=== PATIENT | male | born 1980 | race Caucasian/White ===

== ENCOUNTER 2016-10-14 21:05 | Emergency (ER) | payer OTHER ==
[~2016-10-14] VITALS: Ht 188 cm; Wt 81.6 kg
--- NOTE | 2016-10-14 21:10 | NUR ---
PT AMBULATORY TO ER BED 11. PRESENTS W/ BLE CELLULITIS. 03/11 PAIN. DENIES IV DRUG USE. GOWNED AND PLACED ON MONNITOR. VAHID FIGUEROA.
--- NOTE | 2016-10-14 21:27 | NUR ---
IV LINE STARTED BLOOD DRAWN AND SENT TO LAB.
--- NOTE | 2016-10-14 21:33 | NUR ---
RADIOLOGY AT BEDSIDE FOR CHEST XRAY.
[2016-10-14 21:34] LABS: BASOPHILS % (AUTO) 0.5 % (0.0-2.0); EOSINOPHILS % (AUTO) 0.2 % (0.0-6.0); HEMATOCRIT 44 % (39-51); HEMOGLOBIN 14.4 g/dL (13.5-17.5); LYMPHOCYTES # (AUTO) 1.9 /CMM (0.8-4.8); LYMPHOCYTES % (AUTO) 38.5 % (20.0-44.0); MEAN CORPUSCULAR HEMOGLOBIN 28 PG (26.0-33.0); MEAN CORPUSCULAR HGB CONC 33 g/dl (31.0-36.0); MEAN CORPUSCULAR VOLUME 84 fL (80-96); MONOCYTES # (AUTO) 0.3 /CMM (0.1-1.30); MONOCYTES % (AUTO) 6.1 % (2.0-12.0); NEUTROPHILS # (AUTO) 2.8 /CMM (1.8-8.9); NEUTROPHILS % (AUTO) 54.7 % (43.0-81.0); PLATELET COUNT (AUTO) 150 /CMM (150-450); RDW COEFFICIENT OF VARIATION 12.2 (11.5-15.0); RED BLOOD CELL COUNT(AUTO) 5.25 MIL/uL (4.5-6.0)
[2016-10-14 21:45] LABS: CALCIUM, SERUM 9.1 mg/dL (8.5-10.1); CARBON DIOXIDE 30 mmol/L (21-32); CHLORIDE 102 mmol/L (98-107); CREATININE 0.9 mg/dL (0.6-1.3); GFR 96 mL/min (>60); GLUCOSE 84 mg/dL (74-106); POTASSIUM 3.7 mmol/L (3.5-5.1); SODIUM SERUM 140 mmol/L (136-145); UREA NITROGEN, BLOOD 19 mg/dL (7-18)
[2016-10-14 21:50] LABS: ALANINE AMINOTRANSFERASE 15 U/L (12-78); ALBUMIN 4.5 g/dL (3.4-5.0); ALKALINE PHOSPHATASE 89 U/L (46-116); ASPARTATE AMINOTRANSFERASE 13 U/L (15-37); BILIRUBIN,DIRECT 0.1 mg/dL (0.0-0.2); BILIRUBIN,TOTAL 0.5 mg/dL (0.2-1.0); TOTAL PROTEIN, SERUM 8.4 g/dL (6.4-8.2)
[2016-10-14 21:52] LABS: TROPONIN I < 0.017 ng/mL (0.00-0.056)
[2016-10-14 21:53] LABS: INR 0.95 (0.87-1.13); PROTHROMBIN TIME 9.9 SECS (9.5-12.7)
[2016-10-14] MEDS ORDERED: PIPERACILLIN /TAZOBACTAM 3.375 G VIAL IV ONE (21:57)
[2016-10-14] MEDS ORDERED: IV D5W 250 ML IV ONE (21:57)
[2016-10-14] MEDS ORDERED: VANCOMYCIN 1 GM VIAL ONE (21:57)
[2016-10-14] MEDS ORDERED: IV SET PRIMARY PUMP SET 1 EA INFUS.SET MC ONE (21:58)
[2016-10-14] MEDS ORDERED: VANCOMYCIN 1 GM in IV D5W 250 ML IV ONE (22:00)
[2016-10-14] MEDS ORDERED: PIPERACILLIN /TAZOBACTAM 3.375 G in IV D5W 50 ML IV ONE (22:00)
[2016-10-14 22:20] LABS: LACTIC ACID 1.1 mmol/L (0.4-2.0)
--- NOTE | 2016-10-14 23:51 | NUR ---
Patient does not wish to proceed with medical care recommended by Dr. Horton. Patient given information related to possible complications, up to and including , which could occur as a result of leaving the hospital at this time. Patient verbalizes understanding of risks involved due to leaving against medical advice. Patient has signed AMA form.IV removed. Catheter intact and site benign. Pressure and 4x4 applied to site. No bleeding noted.Patient discharged to home in stable condition. Written and verbal after care instructions given. Patient verbalizes understanding of instruction.
[2016-10-15 00:03] VITALS: BP 128/77
== END 2016-10-15 00:03 | disposition left against medical advice (07) ==
LOC: ER 21:07
DX: L03.116 Cellulitis of left lower limb (principal); L03.115 Cellulitis of right lower limb
CPT/HCPCS: 36415; 71010; 80048; 80076; 83605; 84484; 85025; 85730; 87040 ×2; 93005; 96365; 96375; 99285; A4606; J2543; J3370; J7060; Z7610

== ENCOUNTER 2017-05-14 08:10 | Emergency (ER) | payer OTHER ==
[~2017-05-14] VITALS: Ht 182.9 cm; Wt 81.6 kg
--- NOTE | 2017-05-14 08:15 | NUR ---
AAOX3, [id number] FROM A BUS STOP FOR LT LOWER LEG CELLULITIS ON/OFF 6 MONTHS. RR IS EVEN AND UNLABORED WITH NAD NOTED. SKIN IS WARM AND DRY. ASSISTED TO HOSPITAL GOWN. DR ANDERSON AT BS FOR EVAL.
[2017-05-14 08:38] LABS: BASOPHILS % (AUTO) 0.5 % (0.0-2.0); HEMATOCRIT 39 % (39-51); HEMOGLOBIN 12.7 g/dL (13.5-17.5); LYMPHOCYTES # (AUTO) 1.3 /CMM (0.8-4.8); LYMPHOCYTES % (AUTO) 21.7 % (20.0-44.0); MEAN CORPUSCULAR HEMOGLOBIN 28 PG (26.0-33.0); MEAN CORPUSCULAR HGB CONC 33 g/dl (31.0-36.0); MEAN CORPUSCULAR VOLUME 87 fL (80-96); MONOCYTES # (AUTO) 0.3 /CMM (0.1-1.30); MONOCYTES % (AUTO) 5.1 % (2.0-12.0); NEUTROPHILS # (AUTO) 4.5 /CMM (1.8-8.9); NEUTROPHILS % (AUTO) 72.7 % (43.0-81.0); PLATELET COUNT (AUTO) 279 /CMM (150-450); RDW COEFFICIENT OF VARIATION 13.3 (11.5-15.0); RED BLOOD CELL COUNT(AUTO) 4.47 MIL/uL (4.5-6.0); WHITE BLOOD COUNT (AUTO) 6.1 K/uL (4.3-11.0)
[2017-05-14 08:49] LABS: CALCIUM, SERUM 9.4 mg/dL (8.5-10.1); CARBON DIOXIDE 33 mmol/L (21-32); CHLORIDE 100 mmol/L (98-107); CREATININE 0.9 mg/dL (0.6-1.3); GLUCOSE 119 mg/dL (74-106); POTASSIUM 3.4 mmol/L (3.5-5.1); SODIUM SERUM 140 mmol/L (136-145); UREA NITROGEN, BLOOD 16 mg/dL (7-18)
[2017-05-14 08:55] LABS: ALANINE AMINOTRANSFERASE 20 U/L (12-78); ALBUMIN 3.1 g/dL (3.4-5.0); ALKALINE PHOSPHATASE 84 U/L (46-116); ASPARTATE AMINOTRANSFERASE 15 U/L (15-37); BILIRUBIN,DIRECT 0.1 mg/dL (0.0-0.2); BILIRUBIN,TOTAL 0.4 mg/dL (0.2-1.0); TOTAL PROTEIN, SERUM 9.2 g/dL (6.4-8.2)
[2017-05-14 08:57] LABS: INR 0.99 (0.87-1.13); PROTHROMBIN TIME 10.3 SECS (9.5-12.7)
--- NOTE | 2017-05-14 08:58 | NUR ---
RANGE MANAGEMENT SPECIALIST AT BEDSIDE
[2017-05-14 08:59] LABS: TROPONIN I < 0.017 ng/mL (0.00-0.056)
--- NOTE | 2017-05-14 09:59 | NUR ---
Patient discharged to home in stable condition. Written and verbal after care instructions given. Patient verbalizes understanding of instruction.
--- NOTE | 2017-05-14 09:59 | NUR ---
IV removed. Catheter intact and site benign. Pressure and 4x4 applied to site. No bleeding noted.
[2017-05-14 10:01] VITALS: BP 128/85
== END 2017-05-14 10:03 | disposition home or self-care (01) ==
LOC: ER 08:13
DX: I83.018 Varicose veins of right lower extremity with ulcer other part of lower leg (principal); I83.028 Varicose veins of left lower extremity with ulcer other part of lower leg; L97.819 Non-pressure chronic ulcer of other part of right lower leg with unspecified severity; F90.9 Attention-deficit hyperactivity disorder, unspecified type; F20.9 Schizophrenia, unspecified; F31.9 Bipolar disorder, unspecified; F10.10 Alcohol abuse, uncomplicated; Z59.0 Homelessness; Z88.8 Allergy status to other drugs, medicaments and biological substances
CPT/HCPCS: 36415; 71010-TC; 80048-TC; 80076-TC; 83605-TC; 84484-TC; 85025-TC; 85730-TC; 87040-TC; 93970-TC; A4606; Z7610

== ENCOUNTER 2017-05-14 11:36 | Emergency (ER) | payer OTHER ==
[~2017-05-14] VITALS: Ht 182.9 cm; Wt 72.6 kg
[2017-05-14 11:47] VITALS: BP 124/92
== END 2017-05-14 12:05 | disposition home or self-care (01) ==
LOC: ER 11:40
DX: S90.811A Abrasion, right foot, initial encounter (principal); F90.9 Attention-deficit hyperactivity disorder, unspecified type; F31.9 Bipolar disorder, unspecified; F20.9 Schizophrenia, unspecified; Z88.8 Allergy status to other drugs, medicaments and biological substances; Z59.0 Homelessness; X58.XXXA Exposure to other specified factors, initial encounter; Y93.89 Activity, other specified; Y92.89 Other specified places as the place of occurrence of the external cause; Y99.8 Other external cause status
CPT/HCPCS: A4606; A6402; Z7610

== ENCOUNTER 2017-05-14 14:52 | Emergency (ER) | payer OTHER ==
[~2017-05-14] VITALS: Ht 182.9 cm; Wt 77.1 kg
[2017-05-14 14:55] VITALS: BP 127/68
[2017-05-14] MEDS ORDERED: GELATIN SPONGE,ABSORBABLE 1 SPONGE SPONGE TP ONE (15:55)
== END 2017-05-14 16:48 | disposition home or self-care (01) ==
LOC: ER 14:52
DX: I83.019 Varicose veins of right lower extremity with ulcer of unspecified site (principal); F20.9 Schizophrenia, unspecified; F31.9 Bipolar disorder, unspecified; F90.9 Attention-deficit hyperactivity disorder, unspecified type; G40.909 Epilepsy, unspecified, not intractable, without status epilepticus; F10.10 Alcohol abuse, uncomplicated; F17.200 Nicotine dependence, unspecified, uncomplicated; Z88.8 Allergy status to other drugs, medicaments and biological substances; Z59.0 Homelessness
CPT/HCPCS: A4606; A6402; Z7610

== ENCOUNTER 2018-03-21 12:21 | Emergency (ER) | payer OTHER ==
[~2018-03-21] VITALS: Ht 190.5 cm; Wt 67.6 kg
--- NOTE | 2018-03-21 13:00 | NUR ---
ROOPA FROM THE STREETS C/O BILAT FOOT PAIN AND SWELLING. PT NEED MEDICAL CLEARANCE PRIOR TO BOOKING. PT AAOX3, VSS. DENIES CP, SOB, DIZZINESS, N/V/D, NAD NOTED @ THIS TIME. PT SEEN & EVAL'D BY JACQUE KRAMER. MEDICATED FOR PAIN, PT CLOVER WELL. [employer] OFFICERS @ BS.
--- NOTE | 2018-03-21 13:03 | NUR ---
RUFINO SANTILLAN AT BEDSIDE FOR EVAL.
[2018-03-21] MEDS ORDERED: IBUPROFEN 600 MG TABLET PO ONE ×3 (13:11→13:30)
[2018-03-21 13:33] LABS: BASOPHILS % (AUTO) 0.7 % (0.0-2.0); EOSINOPHILS % (AUTO) 0.6 % (0.0-6.0); HEMATOCRIT 38 % (39-51); HEMOGLOBIN 12.8 g/dL (13.5-17.5); LYMPHOCYTES # (AUTO) 1.8 /CMM (0.8-4.8); LYMPHOCYTES % (AUTO) 45.9 % (20.0-44.0); MEAN CORPUSCULAR HEMOGLOBIN 29 PG (26.0-33.0); MEAN CORPUSCULAR HGB CONC 34 g/dl (31.0-36.0); MEAN CORPUSCULAR VOLUME 86 fL (80-96); MONOCYTES # (AUTO) 0.3 /CMM (0.1-1.30); MONOCYTES % (AUTO) 8.8 % (2.0-12.0); NEUTROPHILS # (AUTO) 1.7 /CMM (1.8-8.9); PLATELET COUNT (AUTO) 152 /CMM (150-450); RDW COEFFICIENT OF VARIATION 12.4 (11.5-15.0); RED BLOOD CELL COUNT(AUTO) 4.43 MIL/uL (4.5-6.0); WHITE BLOOD COUNT (AUTO) 3.8 K/uL (4.3-11.0)
[2018-03-21 13:42] LABS: CALCIUM, SERUM 8.8 mg/dL (8.5-10.1); CARBON DIOXIDE 31 mmol/L (21-32); CHLORIDE 104 mmol/L (98-107); CREATININE 0.7 mg/dL (0.6-1.3); GLUCOSE 99 mg/dL (74-106); POTASSIUM 3.3 mmol/L (3.5-5.1); SODIUM SERUM 137 mmol/L (136-145); UREA NITROGEN, BLOOD 17 mg/dL (7-18)
[2018-03-21 13:47] LABS: INR 0.94 (0.85-1.15)
[2018-03-21 13:48] LABS: ALANINE AMINOTRANSFERASE 18 U/L (12-78); ALBUMIN 3.8 g/dL (3.4-5.0); ALKALINE PHOSPHATASE 71 U/L (46-116); ASPARTATE AMINOTRANSFERASE 13 U/L (15-37); BILIRUBIN,DIRECT 0.1 mg/dL (0.0-0.2); BILIRUBIN,TOTAL 0.4 mg/dL (0.2-1.0); TOTAL PROTEIN, SERUM 7.1 g/dL (6.4-8.2)
[2018-03-21 13:49] LABS: TROPONIN I < 0.017 ng/mL (0.00-0.056)
[2018-03-21] MEDS ORDERED: CEFTRIAXONE 1 G VIAL IM ONE (14:30)
[2018-03-21] MEDS ORDERED: CEFTRIAXONE 1GM BAG (ER ONLY) 1 GM/50 ML PIGGYBACK IV ONE (14:30)
[2018-03-21] MEDS ORDERED: CEFTRIAXONE 1 G VIAL ONE (14:32)
[2018-03-21] MEDS ORDERED: LIDOCAINE /MPF 1% VIAL 5 ML VIAL ONE (14:32)
--- NOTE | 2018-03-21 15:09 | NUR ---
MEDICALLY CLEARED FOR BOOKING. D/C TO PD IN STABLE CONDITION.
[2018-03-21 15:11] VITALS: BP 135/84
== END 2018-03-21 15:12 | disposition home or self-care (01) ==
LOC: ER 12:22
DX: L03.116 Cellulitis of left lower limb (principal); L03.115 Cellulitis of right lower limb; F31.9 Bipolar disorder, unspecified; F90.9 Attention-deficit hyperactivity disorder, unspecified type; F20.9 Schizophrenia, unspecified; F17.200 Nicotine dependence, unspecified, uncomplicated; G40.909 Epilepsy, unspecified, not intractable, without status epilepticus; Z88.8 Allergy status to other drugs, medicaments and biological substances; Z59.0 Homelessness
CPT/HCPCS: 36415; 71045; 80048; 80076; 83605; 84484; 85025; 85730; 87040 ×2; 93005; 93970; 96372; 99285; J0696; J3490; Z7610

== ENCOUNTER 2018-09-18 03:13 | Emergency (ER) | payer MEDICAID, OTHER ==
[~2018-09-18] VITALS: Ht 203.2 cm; Wt 89.4 kg
--- NOTE | 2018-09-18 03:23 | NUR ---
CALLED FOR PT IN WAITING ROOM NO RESPONSE.
[2018-09-18 04:06] VITALS: BP 123/74
== END 2018-09-18 04:38 | disposition home or self-care (01) ==
LOC: ER 03:15
DX: R60.0 Localized edema (principal); G89.29 Other chronic pain; F31.9 Bipolar disorder, unspecified; F20.9 Schizophrenia, unspecified; F90.9 Attention-deficit hyperactivity disorder, unspecified type; F10.10 Alcohol abuse, uncomplicated; F17.200 Nicotine dependence, unspecified, uncomplicated; Y90.9 Presence of alcohol in blood, level not specified; Z88.8 Allergy status to other drugs, medicaments and biological substances; Z59.0 Homelessness; Z88.9 Allergy status to unspecified drugs, medicaments and biological substances
CPT/HCPCS: 99281; A4606; Z7502

== ENCOUNTER 2019-03-28 09:14 | Emergency (ER) | payer SELFPAY ==
[~2019-03-28] VITALS: Ht 195.6 cm; Wt 96.2 kg
--- NOTE | 2019-03-28 09:20 | NUR ---
left leg pain x few months now, went to ER today seeking treatment
--- NOTE | 2019-03-28 09:48 | NUR ---
US TECH AT BEDSIDE
--- NOTE | 2019-03-28 11:09 | NUR ---
Patient discharged to home in stable condition. Written and verbal after care instructions given. Patient verbalizes understanding of instruction.
[2019-03-28 11:11] VITALS: BP 130/84
== END 2019-03-28 11:11 | disposition home or self-care (01) ==
LOC: ER 09:16
DX: I83.12 Varicose veins of left lower extremity with inflammation (principal); I83.11 Varicose veins of right lower extremity with inflammation; F31.9 Bipolar disorder, unspecified; F20.9 Schizophrenia, unspecified; F90.9 Attention-deficit hyperactivity disorder, unspecified type; Z88.8 Allergy status to other drugs, medicaments and biological substances; F17.200 Nicotine dependence, unspecified, uncomplicated; Z59.0 Homelessness
CPT/HCPCS: 93970-TC

== ENCOUNTER 2019-04-01 23:12 | Emergency (ER) | payer SELFPAY ==
[~2019-04-01] VITALS: Ht 182.9 cm; Wt 80.7 kg
[2019-04-01 23:21] VITALS: BP 129/67
--- NOTE | 2019-04-02 00:49 | NUR ---
Patient discharged to home in stable condition. Written and verbal after care instructions given. Patient verbalizes understanding of instruction. Pt ambulatory with a steady gait
--- NOTE | 2019-04-02 00:49 | NUR ---
John simmons in EDM - 04/02/19 at 0049 by ALDEN Patient discharged to home in stable condition. Written and verbal after care instructions given. Patient verbalizes understanding of instruction.(pt. name) ambulatory with a steady gait
== END 2019-04-02 00:51 | disposition home or self-care (01) ==
LOC: ER 23:13
DX: L03.116 Cellulitis of left lower limb (principal); L03.115 Cellulitis of right lower limb; F31.9 Bipolar disorder, unspecified; F20.9 Schizophrenia, unspecified; F90.9 Attention-deficit hyperactivity disorder, unspecified type; F10.10 Alcohol abuse, uncomplicated; F17.200 Nicotine dependence, unspecified, uncomplicated; Y90.9 Presence of alcohol in blood, level not specified; Z59.0 Homelessness; Z88.8 Allergy status to other drugs, medicaments and biological substances; Z88.9 Allergy status to unspecified drugs, medicaments and biological substances

== ENCOUNTER 2019-04-21 11:38 | Emergency (ER) | payer SELFPAY ==
[~2019-04-21] VITALS: Ht 198.1 cm; Wt 84.4 kg
--- NOTE | 2019-04-21 12:24 | NUR ---
PATIENT CAME IN TO THE ER C/O GENERALIZED ITCHING, "BUGS CRAWLING ALL OVER." ON ROOM AIR, BREATHING EVENLY AND UNLABORED. KEPT COMFORTABLE, WILL CONTINUE TO MONITOR ACCORDINGLY.
--- NOTE | 2019-04-21 12:25 | NUR ---
KERLINE WALDEN AT BEDSIDE.
[2019-04-21 12:26] VITALS: BP 123/74
--- NOTE | 2019-04-21 12:30 | NUR ---
Patient given written and verbal discharge instructions. Patient verbalizes understanding of instructions. Patient is ambulatory with steady gait. Refuses offer of half-way placement. Patient given list of available shelters in surrounding area but refused resources.
--- NOTE | 2019-04-21 12:30 | NUR ---
Social service consult requested by JACQUE Branch for homelessness. Pt. is a 38 year old male who came to [facility] complaining of generalized itching and bugs crawling all over. WIN met with the pt. bedside. Pt. is alert and oriented x 4. Pt. appears disheveled. Pt. had his hands in his pants and was itching the entire time of the assessment. Pt. states he is homeless and has been for a while. SW offered pt. detention placement and resources, however pt declined all resources offered to him. Pt. does not get GR or food stamps. Pt. panhandles for food and cigarettes. Pt. encouraged pt. to take the resources for food serrano, pt. declined. Pt. denies drug use but drinks alcohol. Pt. smokes a pack of cigarettes per day. Pt. declined all resources. Homeless patient waiver form will be signed by the pt upon discharge. WIN updated JACQUE Branch and pt's RN Dionte regarding pt's discharge plan. No other social service needs are requested at this time.
== END 2019-04-21 12:26 | disposition home or self-care (01) ==
LOC: ER 11:40
DX: S30.860A Insect bite (nonvenomous) of lower back and pelvis, initial encounter (principal); L08.9 Local infection of the skin and subcutaneous tissue, unspecified; F20.9 Schizophrenia, unspecified; F31.9 Bipolar disorder, unspecified; F90.9 Attention-deficit hyperactivity disorder, unspecified type; F10.10 Alcohol abuse, uncomplicated; F17.200 Nicotine dependence, unspecified, uncomplicated; Y90.9 Presence of alcohol in blood, level not specified; Z59.0 Homelessness; Z88.8 Allergy status to other drugs, medicaments and biological substances; Z88.9 Allergy status to unspecified drugs, medicaments and biological substances; W57.XXXA Bitten or stung by nonvenomous insect and other nonvenomous arthropods, initial encounter; Y93.89 Activity, other specified; Y92.89 Other specified places as the place of occurrence of the external cause; Y99.8 Other external cause status

== ENCOUNTER 2020-02-07 20:14 | Inpatient (IN) | payer MEDICAID ==
[~2020-02-07] VITALS: Ht 198.1 cm; Wt 81.6 kg
--- NOTE | 2020-02-07 20:25 | NUR ---
URINE COLLECTED AND SENT TO LAB
--- NOTE | 2020-02-07 20:26 | NUR ---
BIBSELF C/O PENILE SWELLING X1 WEEK.-FEVER,-DYSURIA,-HEMATURIA,-DISCHARGE ALSO C/O LOWER BACK WOUND X1 WEEK, pt to bed 12, awake, alert, -sob, speaking in full sentences, denies f/c/n/v/d, placed on monitor vss. pending er provider marcus
[2020-02-07 21:11] LABS: APPEARANCE,URINE Clear (CLEAR); BILIRUBIN,URINE SMALL (NEGATIVE); BLOOD, URINE Negative Ery/uL (NEGATIVE); COLOR,URINE Yellow (YELLOW); KETONES,URINE Negative (NEGATIVE); LEUKOCYTE ESTERASE ,URINE Negative (NEGATIVE); NITRITE, URINE Negative (NEGATIVE); PROTEIN,URINE 100 mg/dl (NEGATIVE); UGLUCOSE Negative (NEGATIVE)
[2020-02-07 21:17] LABS: BACTERIA,URINE Rare /HPF (None Seen); RBC,URINE 0-2 /HPF (0-2); WBC,URINE 0-2 /HPF (0-3)
[2020-02-07 21:18] LABS: MUCUS,URINE Many /LPF (None Seen)
--- NOTE | 2020-02-07 21:21 | NUR ---
XRAY AT BEDSIDE.
[2020-02-07 21:23] LABS: BASOPHILS % (AUTO) 0.6 % (0.0-2.0); HEMATOCRIT 37 % (39-51); HEMOGLOBIN 12.1 g/dL (13.5-17.5); LYMPHOCYTES # (AUTO) 1.5 /CMM (0.8-4.8); LYMPHOCYTES % (AUTO) 30.7 % (20.0-44.0); MEAN CORPUSCULAR HGB CONC 33 g/dl (31.0-36.0); MEAN CORPUSCULAR VOLUME 87 fL (80-96); MONOCYTES # (AUTO) 0.3 /CMM (0.1-1.30); MONOCYTES % (AUTO) 6.4 % (2.0-12.0); NEUTROPHILS # (AUTO) 3.1 /CMM (1.8-8.9); NEUTROPHILS % (AUTO) 62.3 % (43.0-81.0); PLATELET COUNT (AUTO) 211 /CMM (150-450); RED BLOOD CELL COUNT(AUTO) 4.26 MIL/uL (4.5-6.0); WHITE BLOOD COUNT (AUTO) 4.9 K/uL (4.3-11.0)
[2020-02-07 21:36] LABS: CALCIUM, SERUM 8.5 mg/dL (8.5-10.1); CREATININE 0.8 mg/dL (0.6-1.3); POTASSIUM 3.5 mmol/L (3.5-5.1)
[2020-02-07 21:46] LABS: C-REACTIVE PROTEIN 3.3 mg/dL (0.0-0.9)
--- NOTE | 2020-02-07 21:54 | NUR ---
ULTRASOUND AT BEDSIDE
[2020-02-07] MEDS ORDERED: PIPERACILLIN /TAZOBACTAM 3.375 G VIAL IV ONE (23:30)
[2020-02-07] MEDS ORDERED: PIPERACILLIN /TAZOBACTAM 3.375 G in IV D5W 50 ML IV ONE (23:30)
[2020-02-07] MEDS ORDERED: VANCOMYCIN 1 GM in IV D5W 250 ML IV ONE (23:30)
[2020-02-07] MEDS ORDERED: VANCOMYCIN 1 GM VIAL ONE (23:30)
--- NOTE | 2020-02-07 23:30 | NUR ---
rapid and pcr covid swab sent per protocol
--- NOTE | 2020-02-07 23:30 | NUR ---
John simmons in [facility] - 02/07/20 at 2331 by DONTE [id number]
--- NOTE | 2020-02-07 23:50 | NUR ---
report given to booker english for sil; pt will be transported to 1st floor
--- NOTE | 2020-02-08 00:09 | NUR ---
pt transported to 1st floor
[2020-02-08] MEDS ORDERED: IV NS 0.9% 1,000 ML IV PRN (00:10)
[2020-02-08 00:30] VITALS: BP 128/78
[2020-02-08] MEDS ORDERED: MAGNESIUM HYDROXIDE 30 ML UDC PO PRN (00:30)
[2020-02-08] MEDS ORDERED: Z GUARD REMEDY 2 OZ OINT TP PRN (00:30)
[2020-02-08] MEDS ORDERED: MORPHINE SULFATE INJ 2 MG/ML DISP.SYRIN IV PRN (00:30)
[2020-02-08] MEDS ORDERED: HYDROCODONE/APAP 5/325MG TABLET PO PRN (00:30)
[2020-02-08] MEDS ORDERED: ONDANSETRON HCL/PF 4 MG/2 ML VIAL IVP PRN (00:30)
[2020-02-08] MEDS ORDERED: ACETAMINOPHEN 325 MG TABLET PO PRN (00:30)
[2020-02-08] MEDS ORDERED: TEMAZEPAM 15 MG CAPSULE PO PRN (00:30)
[2020-02-08] MEDS ORDERED: MAG HYDROX/AL HYDROX/SIMETH 30 ML UDC PO PRN (00:30)
--- NOTE | 2020-02-08 00:30 | NUR ---
RN OPENING NOTE PT TRANSFERRED TO THE UNIT VIA GURNEY. PT IS A/A/O X4. ON RA SATING 100%. PT HAS UNLABORED BREATHING. SAFETY MEASURES IN PLACE BED AT LOWEST POSITION, LOCKED,SIDE RAILS UPX2, CALL LIGHT IN REACH.
--- NOTE | 2020-02-08 00:46 | NUR ---
RN NOTE PT DOES NOT LET [employer] SPECIAL EDUCATION TEACHER TOUCH HIS BELONGINGS.
[2020-02-08 00:50] VITALS: BP 128/78
--- NOTE | 2020-02-08 01:59 | NUR ---
RN NOTE RECEIVED LAB REPORT REGARDING RAPID SWAB FOR COVID WHICH IS NEGATIVE.
[2020-02-08 04:00] VITALS: BP 122/74
[2020-02-08] MEDS ORDERED: ZOSYN IVPB 3.375 G in IV D5W 50ml IV ONE (05:00)
[2020-02-08] MEDS ORDERED: PIPERACILLIN /TAZOBACTAM 3.375 G VIAL IV ONE (05:01)
--- NOTE | 2020-02-08 07:00 | NUR ---
RN CLOSING NOTE PT REMAINED STABLE DURING MY SHIFT. REPORT GIVEN TO INCOMING SHIFT FOR DAYSI.
--- NOTE | 2020-02-08 07:15 | NUR ---
MS RN NOTES RECEIVED PATIENT IN BED ASLEEP. AROUSABLE TO VERBALAND TACTILE STIMULI. HOB ELEVATED. NO SOB. DENIES ANY C/O PAIN NOR DISCOMFORT AT THIS TIME. LEFT AC # 20 INTACT AND PATENT INFUSING NS AT 75ML/HR CLOVER WELL. BED IN LOWEST POSITION, LOCKED. CALL LIGHT WITHIN REACH.
--- NOTE | 2020-02-08 08:00 | NUR ---
MS RN NOTES NOTED TEMP OF 102. COOLING MEASURES APPLIED, TYLENOL GIVEN PO CLOVER WELL. WILL CONTINUE TO MONITOR.
[2020-02-08] MEDS ORDERED: QUET200T PO (08:35)
[2020-02-08] MEDS ORDERED: DEXT5TAB15 PO (08:35)
[2020-02-08] MEDS ORDERED: VANCOMYCIN 1.25 GM in IV D5W 250 ML IV SCH (09:00)
--- NOTE | 2020-02-08 09:30 | NUR ---
MS RN NOTES NOTED TEMP DECREASE TO 98.8 ORALLY. DENIES ANY C/O PAIN OF PAIN NOR DISCOMFORT.
--- NOTE | 2020-02-08 09:45 | NUR ---
MS RN NOTED ALERT AND ORIENTED X4. AMBULATORY WITH STEADY GAIT. NO S/S OF ACUTE DISTRESS.
--- NOTE | 2020-02-08 11:00 | NUR ---
MS RN NOTES PATIENT REFUSED DISCHARGE PAPER WORKS AND PICTURES TO BE TAKEN.
--- NOTE | 2020-02-08 11:00 | NUR ---
MS RN NOTES PATIENT WANTS TO LEAVE AMA. PER PATIENT, HE HAS TO TAKE CARE OF HIS PAPERS FOR THE STIMULUS CHECK. INFORMED PATIENT THAT TODAY IS SUNDAY, OFFICES ARE CLOSE AND THAT PATIENT IS NOT MEDICALLY CLEAR TO BE DISCHARGE. PATIENT VERBALIZES UNDERSTANDING AND STILL WANTS TO LEAVE AMA. DR. PIZARRO MADE AWARE. PATIENT SIGNED AMA FORM. ALL BELONGINGS ACCOUNTED FOR. IV ACCESS REMOVED WITH CATHETER TIP INTACT WITH GAUZE DRESSING IN PLACE. NURSING SUP MADE AWARE. AMBULATORY WITH STEADY GAIT. PATIENT LEFT FACILITY AGAINS MEDICAL ADVICE.
[2020-02-08] MEDS ORDERED: PIPERACILLIN /TAZOBACTAM 3.375 G in IV D5W 50 ML IV SCH (12:00)
[2020-02-08] MEDS ORDERED: QUETIAPINE FUMARATE 100 MG TABLET PO SCH (18:00)
== END 2020-02-08 13:15 | disposition home or self-care (01) | DRG 383 ==
LOC: ER 20:17 → MEDSG1 23:34
PROVIDERS: ADMIT Internal Medicine; ATTEND Internal Medicine
DX: L03.116 Cellulitis of left lower limb (principal); N48.22 Cellulitis of corpus cavernosum and penis; F31.9 Bipolar disorder, unspecified; Z59.0 Homelessness; I87.8 Other specified disorders of veins; F20.9 Schizophrenia, unspecified; F90.9 Attention-deficit hyperactivity disorder, unspecified type; Z88.8 Allergy status to other drugs, medicaments and biological substances; D64.9 Anemia, unspecified; F41.9 Anxiety disorder, unspecified; N50.3 Cyst of epididymis; S80.862A Insect bite (nonvenomous), left lower leg, initial encounter
CPT/HCPCS: 36415; 73590-TC; 76870-TC; 80048-TC; 81000-TC; 83605-TC; 85025-TC; 85652-TC; 86140-TC; 87081-TC; 87086-TC; 87491; 87591; 93971-TC; G0378; J2543; J3370; J7030; J7060; U0003-CS

== ENCOUNTER 2020-10-07 19:11 | Emergency (ER) | payer OTHER ==
[~2020-10-07] VITALS: Ht 190.5 cm; Wt 81.6 kg
[~2020-10-07 19:11] MED LIST: DEXT5TAB15 PO; QUET200T PO
--- NOTE | 2020-10-07 19:35 | NUR ---
BIBRA 60 & [employer] FOR C/O R CUEVAS PAIN S/P FALL. PT IN CUSTODY OF [employer] FOR OTB. THE PATIENT RATES PAIN 9/10. THE PATIENT DENIES SOB. RESPIRATION REGULAR AND UNLABORED. [employer] OFFICERS AT THE BEDSIDE. WILL CONTINUE TO MONITOR.
[2020-10-07 20:15] LABS: BASOPHILS % (AUTO) 0.4 % (0.0-2.0); HEMATOCRIT 41 % (39-51); HEMOGLOBIN 13.4 g/dL (13.5-17.5); LYMPHOCYTES # (AUTO) 1.5 /CMM (0.8-4.8); MEAN CORPUSCULAR HGB CONC 33 g/dl (31.0-36.0); MEAN CORPUSCULAR VOLUME 86 fL (80-96); MONOCYTES # (AUTO) 0.4 /CMM (0.1-1.30); NEUTROPHILS # (AUTO) 2.3 /CMM (1.8-8.9); NEUTROPHILS % (AUTO) 54.6 % (43.0-81.0); PLATELET COUNT (AUTO) 174 /CMM (150-450); RED BLOOD CELL COUNT(AUTO) 4.71 MIL/uL (4.5-6.0); WHITE BLOOD COUNT (AUTO) 4.2 K/uL (4.3-11.0)
[2020-10-07 20:24] LABS: CALCIUM, SERUM 8.6 mg/dL (8.5-10.1); CREATININE 0.9 mg/dL (0.6-1.3); POTASSIUM 3.7 mmol/L (3.5-5.1)
[2020-10-07] MEDS ORDERED: IBUP-1955 PO (20:45)
--- NOTE | 2020-10-07 21:05 | NUR ---
PT IS MEDICALLY CLEAR FOR D/C AND BOOKING. PT WAS D/C'D IN CUSTODY TO [employer] IN STABLE CONDITION. rx an Written and verbal after care instructions given. Patient verbalizes understanding of instruction.
[2020-10-07 21:08] VITALS: BP 138/87
== END 2020-10-07 21:17 ==
LOC: ER 19:26
DX: R60.0 Localized edema (principal); G40.909 Epilepsy, unspecified, not intractable, without status epilepticus; F31.9 Bipolar disorder, unspecified; F20.9 Schizophrenia, unspecified; F10.10 Alcohol abuse, uncomplicated; F17.200 Nicotine dependence, unspecified, uncomplicated; Y90.9 Presence of alcohol in blood, level not specified; Z02.89 Encounter for other administrative examinations; Z88.8 Allergy status to other drugs, medicaments and biological substances; Z59.0 Homelessness; Z79.899 Other long term (current) drug therapy
CPT/HCPCS: 36415; 73590-TC; 80048-TC; 85025-TC; 93970-TC

== ENCOUNTER 2020-12-29 06:38 | Emergency (ER) | payer MEDICAID, OTHER ==
[~2020-12-29] VITALS: Ht 190.5 cm; Wt 81.6 kg
[~2020-12-29 06:38] MED LIST changes: +IBUP-1955 PO
--- NOTE | 2020-12-29 06:45 | NUR ---
PATIENT [id number] FROM STREET FOR NOSEBLEED, BYSTANDER CALLED NOTICED DRIED BLOOD ADMITS TO DOING DRUGS, DENIES ANY TRAUMA. PATIENT IS A/OX 3, RR EVEN AND UNLABORED, NO SIGNS OF SOB NOTED. PATIENT CONNECTED TO MONITOR, VSS, WILL CONTINUE TO MONITOR.
--- NOTE | 2020-12-29 06:47 | NUR ---
PATIENT TAKEN TO CT
[2020-12-29 07:11] VITALS: BP 110/65
--- NOTE | 2020-12-29 07:29 | NUR ---
Patient discharged to home in stable condition. Written and verbal after care instructions given. Patient verbalizes understanding of instruction.
== END 2020-12-29 07:29 | disposition home or self-care (01) ==
LOC: ER 06:41
DX: S00.83XA Contusion of other part of head, initial encounter (principal); R04.0 Epistaxis; F20.9 Schizophrenia, unspecified; F31.9 Bipolar disorder, unspecified; F90.9 Attention-deficit hyperactivity disorder, unspecified type; F17.200 Nicotine dependence, unspecified, uncomplicated; Z88.8 Allergy status to other drugs, medicaments and biological substances; Z59.0 Homelessness; Z79.899 Other long term (current) drug therapy; W22.8XXA Striking against or struck by other objects, initial encounter; Y93.89 Activity, other specified; Y92.89 Other specified places as the place of occurrence of the external cause; Y99.8 Other external cause status
CPT/HCPCS: 70450-TC